=== PATIENT | female | born 1975 | race Two or more races ===

== ENCOUNTER 2024-01-08 08:52 | Emergency (ER) | payer BC ==
[2024-01-08 09:07] VITALS: RESP 17; TEMP 98.3; BMI 39.4
[2024-01-08] MEDS ORDERED: ACETAMINOPHEN 325 MG TABLET (FP) ONE (10:10)
[2024-01-08] MEDS ORDERED: LOSARTAN POTASSIUM 50 MG TABLET ONE (10:10)
[2024-01-08] MEDS: LOSARTAN POTASSIUM 50 MG TABLET PO ONE (10:22)
[2024-01-08] MEDS: ACETAMINOPHEN 325 MG TABLET (FP) PO ONE (10:22)
[2024-01-08 11:58] VITALS: BP 203/113; PULSE 74
[2024-01-08] MEDS ORDERED: KETOROLAC TROMETHAMINE 30 MG/1 ML VIAL ONE (12:03)
[2024-01-08] MEDS: KETOROLAC TROMETHAMINE 30 MG/1 ML VIAL IM ONE (12:08)
== END 2024-01-08 12:54 | disposition home or self-care (01) ==
LOC: JER 08:52
PROC: 3E0133Z Introduction of Anti-inflammatory into Subcutaneous Tissue, Percutaneous Approach (ICD-10-PCS; principal; 2024-01-08)
DX: M25.562 Pain in left knee (principal); I10 Essential (primary) hypertension; X50.1XXA Overexertion from prolonged static or awkward postures, initial encounter
CPT/HCPCS: 73562-TC-LT-FY; 99284-25